=== PATIENT | male | born 1955 | race Caucasian/White ===

== ENCOUNTER 2021-03-16 06:22 | Day surgery (SDC) | payer OTHER, SELFPAY ==
[2021-03-16] MEDS: Tropicam./Phenyleph. (1/2.5%) 5 ML BTL OD ×3 (06:45→06:55)
[2021-03-16 06:52] VITALS: BP 122/78; PULSE 62; RESP 16; TEMP 36.5; O2SAT 97
--- NOTE | 2021-03-16 07:06 | W.ANESPRE ---
General Info Date of Service Date Performed: 03/16/21 Height: 6 ft Weight: 111.9 kg Body Mass Index (BMI): 33.4 Surgical Procedure: Operation Date: 03/16/21 07:40 Proposed Procedures Side Surgeon p Cataract Extraction with IOL Implant Right Wayne Bazan MD Actual Procedures Side Surgeon p Cataract Extraction with IOL Implant Left Wayne Bazan MD Pre-Op Diagnosis Post-Op Diagnosis CATARACT LEFT EYE Meds Allergies and Home Medications Allergies Allergy/AdvReac Type Severity Reaction Status Date / Time No Known Allergies Allergy Unverified 03/16/21 06:36 Home Medication Medication Instructions Recorded apixaban 5 mg PO BID 03/14/21 atorvastatin 40 mg PO HS 03/14/21 diltiazem HCl 180 mg PO DAILY 03/14/21 furosemide 20 mg PO DAILY 03/14/21 gabapentin 300 mg PO BID 03/14/21 levothyroxine 175 mcg PO QAM 03/14/21 metoprolol succinate 25 mg PO DAILY 03/14/21 oxycodone-acetaminophen 1 - 1.5 tab PO BID PRN 03/14/21 psyllium 1 tbsp PO DAILY 03/14/21 sennosides 8.6 mg PO DAILY 03/14/21 trazodone 25 mg PO HS 03/14/21 zolpidem 10 mg PO HS 03/14/21 Current Visit Medications: Current Medications Generic Name Dose Route Start Last Admin Trade Name Freq PRN Reason Stop Dose Admin Acetaminophen 1,000 mg 03/16/21 06:00 Acetaminophen 500 Mg Tab PO Q4H PRN PRN Miscellaneous Medication 0 ml 03/16/21 06:00 Prednisolone 1%, Moxifloxacin 0.5%, Nepafenac 0.1% 5ml Btl OD DIRECTED ANTHONY Miscellaneous Medication 0 ml 03/16/21 06:00 03/16/21 06:55 Tropicam./Phenyleph. (1/2.5%) 5 Ml Btl OD 1 drp DIRECTED ANTHONY Administration Tetracaine HCl 0 ml 03/16/21 06:00 Tetracaine 0.5% 4 Ml Btl OD DIRECTED ANTHONY PFSH Active Problems Active Problems: Problem Status Onset Code Posterior subcapsular age-related cataract of left eye H25.042 Nuclear sclerotic cataract of left eye H25.12 Medical History Medical History Asymmetrical sensorineural hearing loss Atrial fibrillation Benign monoclonal gammopathy BPH (benign prostatic hyperplasia) Chronic back pain Chronic CHF (congestive heart failure) F/U with Dr. Wheat in [facility] beginning of 02/2021 [place] [facility] [place] for CHF and pleural effusion. Pt. states MD was aware he was having cataract surgery Chronic neck pain Constipation, unspecified Essential hypertension History of transient ischemic attack 2019-pt. states he didn't even know he had it until the MD told him he did Hypertriglyceridemia Hypothyroidism Low back pain Obesity Pulmonary embolism 2019 Radiculopathy Secondary pulmonary hypertension Sleep apnea Subjective tinnitus Vitamin B12 deficiency Surgical History Surgical History Hx of cardiac catheterization Hx of prior ablation treatment Tobacco Smoking/Tobacco Use Status: Former Tobacco Use Alcohol Alcohol Intake: current Alcohol intake frequency: a few times a month Alcohol type: beer Substance Use Substance use type: does not use Vital Signs and Lab Results Vital Signs Most Recent Vital Signs in EMR: Most Recent Vital Signs Temp Pulse Resp BP Pulse Ox 36.5 C 62 16 122/78 97 03/16/21 06:52 03/16/21 06:52 03/16/21 06:52 03/16/21 06:52 03/16/21 06:52 Lab Results Blood Type / Crossmatch: No Data to Display Complete Blood Count: No Data to Display Complete Metabolic Panel: No Data to Display Liver Function Panel: No Data to Display Coagulation Panel: No Data to Display Cardiac Panel: No Data to Display Arterial Blood Gas: No Data to Display Venous Blood Gas: No Data to Display Pancreas Panel: No Data to Display Thyroid Panel: No Data to Display Infectious Disease: No Data to Display Blood Cultures: No Data to Display Toxicology Panel: No Data to Display Anesthesia Assessment and Plan Anesthesia History Personal History: No History of Anesthesia Complications Family History: No Family History of Anesthesia Complications Exercise Tolerance Exercise Tolerance: Metabolic Equivalents>4 Pertinent Negatives Pertinent Negatives: No Symptoms of GERD, No Major Cardiovascular Symptoms or Complaints, No Major Pulmonary Symptoms or Complaints (MARCUS does not wear CPAP) and No History of CVA/TIA Cardiac & Pulmonary Exam Cardiac Exam: Normal S1/S2 Heart Sounds Pulmonary Exam: Clear Bilateral Breath Sounds Airway Exam Known Difficult Airway: No Mallampati Class: 3 Mouth Opening: Normal (> 3cm) Thyromental Distance: Greater than 3 cm Neck Range of Motion: Full ROM Neck Circumference: Normal Teeth Condition: Other Airway Comments: Multiple broken misaligned teeth ASA Classification ASA Score: ASA 3 Emergency Case?: No NPO Status NPO Status: NPO Clears >2 hours, Solids >8 hours Anesthesia Plan Resuscitation Status: Full Code Anesthesia Technique: MAC Anesthesia Airway Planned: Natural Airway Monitors Used: Standard Monitors
[2021-03-16 07:09] VITALS: BMI 33.4
[2021-03-16] MEDS: Lidocaine 1% Pres-Free 5 ML VIAL (07:27)
[2021-03-16] MEDS: Balanced Salt Soln.-PLUS 500 ML BAG (07:31)
[2021-03-16] MEDS: Lidocaine 2% Jelly 6 ML SYR (07:32)
[2021-03-16] MEDS: Povidone-Iodine Ophth 30 ML BTL (07:33)
[2021-03-16] MEDS: Duovisc Viscoelastic System EACH 1 EACH (07:34)
[2021-03-16] MEDS: Tetracaine 0.5% 4 ML BTL OD (07:35)
[2021-03-16 07:49] VITALS: BP 128/79; PULSE 59; RESP 16; TEMP 36.4; O2SAT 95
--- NOTE | 2021-03-16 07:53 | W.ANESPOSTOP ---
Postoperative Evaluation Date, Time and Location Date Performed: 03/16/21 Time Performed: 07:53 Patient Location: Day Surgery Unit Vital Signs Most Recent Imported Vital Signs: Most Recent Vital Signs Temp Pulse Resp BP Pulse Ox 36.5 C 62 16 122/78 97 03/16/21 06:52 03/16/21 06:52 03/16/21 06:52 03/16/21 06:52 03/16/21 06:52 Most Recent Manually Entered Vital Signs: Adult Blood Pressure: 128/79 Heart Rate: 59 Respirations: 12 Oxygen Saturation (%): 96 Temperature (C): 36.4 C Pain Score (0-10 Scale): 0 Assessment Mental Status: Awake (Alert & Oriented to Patient Baseline) Airway and Respiratory Function: Patent airway with normal (patient baseline) respiratory exam Cardiovascular Function: Hemodynamically Stable Hydration Status: Adequately Hydrated Nausea & Vomiting: No Nausea or Vomiting Pain: Pt. Denies Any Pain Peripheral Nerve Block: Patient did not receive a nerve block
[2021-03-16 07:54] VITALS: BP 128/79; PULSE 59; RESP 12; TEMPC 36.4; O2SAT 96
--- NOTE | 2021-03-16 07:55 | W.PM.DSUDISC ---
Discharge Plan Disposition Patient Disposition: HOME Condition: Good Discharge Details Attending Provider: Wayne Bazan Primary Care Provider: Shayna Hendrix Home Meds and New Rx's Prescriptions: No Action levothyroxine 175 mcg Tablet 175 mcg PO QAM RF: 0 trazodone 50 mg Tablet 25 mg PO HS RF: 0 diltiazem HCl 180 mg capsule,extended release 24hr 180 mg PO DAILY RF: 0 oxycodone-acetaminophen 5-325 mg Tablet 1 - 1.5 tab PO BID PRNRF: 0 psyllium Powder 1 tbsp PO DAILY RF: 0 gabapentin 300 mg Capsule 300 mg PO BID RF: 0 furosemide 20 mg Tablet 20 mg PO DAILY RF: 0 metoprolol succinate 25 mg Tablet Extended Release 24 Hr 25 mg PO DAILY RF: 0 zolpidem 10 mg Tablet 10 mg PO HS RF: 0 sennosides 8.6 mg Capsule 8.6 mg PO DAILY RF: 0 apixaban 5 mg Tablet 5 mg PO BID RF: 0 atorvastatin 40 mg Tablet 40 mg PO HS RF: 0 Discharge Instructions Stand Alone Forms: Post-op Topical Cataract, Manan Olmos ([facility]U) Discharge Orders Discharge Orders: Discharge Order (Routine); Ordered 03/16/21 Ordered By: Wayne Bazan DS: Diagnosis Discharge Diagnosis (1) Posterior subcapsular age-related cataract of left eye: Status: Resolved (2) Nuclear sclerotic cataract of left eye: Status: Resolved
--- NOTE | 2021-03-16 07:56 | ROE_ITS ---
Date of service: 03/16/21 Time of Service: 07:56 Operative Note Operative Note DATE OF PROCEDURE: 03/16/21 PRE-OP DIAGNOSIS: Nuclear/posterior subcapsular cataract, left eye POST-OP DIAGNOSIS: same PROCEDURE: Cataract extraction using phacoemulsification with intraocular lens implant, left eye SURGEON: Wayne Bazan ANESTHESIA TYPE: Local By Surgeon and MAC Refer to Anesthesia Record PATHOLOGY: none sent COMPLICATIONS: None Patient was transported to: same day Patient's condition: stable Implants: [employer] Tecnis [id number] Indications: Progressive decreased vision due to cataract, left eye, with poor red reflex Procedure Description: CATARACT SURGERY OPERATIVE REPORT PREOPERATIVE DIAGNOSIS: 1. Nuclear/posterior subcapsular cataract, left eye POSTOPERATIVE DIAGNOSIS: Same OPERATION: 1. Cataract extraction using phacoemulsification with posterior chamber intraocular lens implant, left eye. IOL: IOL Collision Estimator/Model: [employer] Omar / TRINH Tecnis [id number] IOL Power: + 17.0 diopters IOL Serial Number: [id number] Optic Diameter: 6.0 mm Haptic/Overall Diameter: 13.0 mm PHACO INFO: Jesse [employer] Dataurion Vision System with OZil and Active Fluidics Cumulative Dispersed Energy (CDE): 17.07 seconds SURGEON: Wayne Bazan MD, TEX ANESTHESIA: Monitored A [facility] (MAC), with local sub-tenon's anesthetic infiltration COMPLICATIONS: None SPECIMENS: None INDICATIONS FOR PROCEDURE: The patient is a 65-year-old gentleman with history of diminished visual acuity in his left eye secondary to the development of significant nuclear and posterior subcapsular cataract. The option of cataract surgery was offered to the patient and he felt he was symptomatic enough that he wished to proceed. PROCEDURE: The correct surgical eye was identified and marked as the left eye and the pupil was dilated in the preoperative area using mydriatics and cycloplegics. The dilated pupil size was 6.5 mm. He elected to proceed without oral sedation.. The patient was brought to the operating room where cardiopulmonary monitoring was instituted and surgical time-out was performed, confirming the correct operative eye and IOL power. Topical anesthesia was administered and ophthalmic povidone-iodine 5% was instilled into the conjunctival fornices. Lidocaine gel was applied to the cornea and the kurt-ocular area was prepped with Betadine 10% solution and drap ed in the usual sterile fashion for intraocular surgery, including an aperture drape. A Tegaderm transparent film dressing was cut in half and used to cover the lashes and lid margins. Care was taken to sequester the lashes and lid margins under the Tegaderm dressing. A lid speculum was placed between the lids of the operative eye and the Florence-Moisés operating microscope was maneuvered into position. Suzette scissors were then used to make a conjunctival buttonhole approximately 6mm posterior to the limbus in the inferonasal quadrant. Blunt dissection was carried out to expose bare sclera, and a blunt-tipped sub-tenon?s anesthesia cannula was introduced and passed posteriorly along the globe where non- preserved plain lidocaine was injected into posterior sub-Tenon?s space. A sideport knife was used to make a paracentesis port superiorly/superiortemporally. Intraocular phenylephrine/lidocaine was injected int the anterior chamber.. Air was then injected into the anterior chamber, followed by Vision Blue, which was painted over the anterior capsule and then irrigated out using BSS. The anterior chamber was filled with viscoelastic. A 2.4mm keratome knife was used to create a half-thickness groove at the limbus and then to construct a three-plane near-clear corneal tunnel extending 2.0mm into clear cornea at the 3:00 position. A flap was raised on the anterior capsule and capsulorhexis forceps were used to complete a continuous curvilinear capsulorhexis of 5.0 mm. Balanced salt solution was then used to perform cortical cleaving hydrodissection and nuclear hydrodelineation until the lens could be freely rotated within the capsular bag. The lens nucleus was then disassembled and removed within the capsular bag and iris plane using phacoemulsification. Residual cortical material was removed using the 45-degree angled silicone I/A tip with 0.3mm port. The posterior capsule was carefully polished to remove as much residual lens epithelial cells as safely possible. The capsular bag was then inflated and the anterior chamber deepened with viscoelastic. The lens implant described above was inserted into the capsular bag using the TRINH Parkin Injector. A Kuglen hook was used to dial the IOL into position. Residual viscoelastic was then removed first from posterior to the IOL, then from the anterior chamber using the I/A handpiece. The lens implant was noted to center nicely within the capsular bag. The incisions were stromally hydrated, and the anterior chamber was reformed using BSS. Then 0.5cc of moxifloxacin 1.0mg/ml were injected into the capsular bag and anterior chamber. The incisions were checked with a Weck spear and found to be secure. Several drops of ophthalmic povidone-iodine 5% were then applied to the eye followed by two drops of Imprimis combination prednisolone/moxifloxacin/nepafenac solution. The drapes were removed and a clear plastic protective eye shield was placed over the eye. The patient was then returned to Same Day Surgery in stable condition.
== END 2021-03-16 08:12 | disposition home or self-care (01) ==
PROVIDERS: PCP Nurse Practitioner Primary Care; Visit Provider Ophthalmology
PROC: (CPT 66984; principal; 2021-03-16 07:30)
DX: H25.042 Posterior subcapsular polar age-related cataract, left eye (principal); I48.91 Unspecified atrial fibrillation; I50.9 Heart failure, unspecified; I11.0 Hypertensive heart disease with heart failure
CPT/HCPCS: 66984; V2632

== ENCOUNTER 2021-03-28 02:28 | Outpatient (CLI) | payer OTHER, SELFPAY ==
[2021-03-28 14:24] LABS: Source Nasal/Nares
[2021-03-28 19:35] LABS: COVID-19 PCR Negative (Negative)
== END 2021-03-28 02:29 | disposition home or self-care (01) ==
LOC: LBO 02:28
PROVIDERS: PCP Nurse Practitioner Primary Care; Visit Provider Ophthalmology
DX: Z20.822 Contact with and (suspected) exposure to COVID-19 (principal); Z01.818 Encounter for other preprocedural examination
CPT/HCPCS: 87635

== ENCOUNTER 2021-03-30 06:08 | Day surgery (SDC) | payer OTHER, SELFPAY ==
[2021-03-30] MEDS: Tropicam./Phenyleph. (1/2.5%) 5 ML BTL OD ×3 (06:37→06:47)
[2021-03-30 06:38] VITALS: BP 118/73; PULSE 59; RESP 16; TEMP 36.4; O2SAT 96
--- NOTE | 2021-03-30 07:13 | W.ANESPRE ---
General Info Date of Service Date Performed: 03/30/21 Height: 6 ft Weight: 112.2 kg Body Mass Index (BMI): 33.5 Surgical Procedure: Operation Date: 03/30/21 07:40 Proposed Procedures Side Surgeon p Cataract Extraction with IOL Implant Right Wayne Bazan MD Meds Allergies and Home Medications Allergies Allergy/AdvReac Type Severity Reaction Status Date / Time No Known Allergies Allergy Unverified 03/30/21 06:33 Home Medication Medication Instructions Recorded apixaban 5 mg PO BID 03/14/21 atorvastatin 40 mg PO HS 03/14/21 diltiazem HCl 180 mg PO DAILY 03/14/21 furosemide 20 mg PO DAILY 03/14/21 gabapentin 300 mg PO BID 03/14/21 levothyroxine 175 mcg PO QAM 03/14/21 metoprolol succinate 25 mg PO DAILY 03/14/21 oxycodone-acetaminophen 1 - 1.5 tab PO BID PRN 03/14/21 psyllium 1 tbsp PO DAILY 03/14/21 sennosides 8.6 mg PO DAILY 03/14/21 trazodone 25 mg PO HS 03/14/21 zolpidem 10 mg PO HS 03/14/21 Current Visit Medications: Current Medications Generic Name Dose Route Start Last Admin Trade Name Freq PRN Reason Stop Dose Admin Acetaminophen 1,000 mg 03/30/21 06:00 Acetaminophen 500 Mg Tab PO Q4H PRN PRN Miscellaneous Medication 0 ml 03/30/21 06:00 Prednisolone 1%, Moxifloxacin 0.5%, Nepafenac 0.1% 5ml Btl OD DIRECTED [facility] Miscellaneous Medication 0 ml 03/30/21 06:00 03/30/21 06:47 Tropicam./Phenyleph. (1/2.5%) 5 Ml Btl OD 1 drp DIRECTED ANTHONY Administration Tetracaine HCl 0 ml 03/30/21 06:00 Tetracaine 0.5% 4 Ml Btl OD DIRECTED [facility] PFSH Active Problems Active Problems: Problem Status Onset Code Nuclear sclerotic cataract of left eye H25.12 Posterior subcapsular age-related cataract of left eye H25.042 Medical History Medical History Asymmetrical sensorineural hearing loss Atrial fibrillation Benign monoclonal gammopathy BPH (benign prostatic hyperplasia) Chronic back pain Chronic CHF (congestive heart failure) F/U with Dr. Wheat in [facility] beginning of 02/2021 as recommended by [facility] [place] inpatient hospitalization for CHF and pleural effusion. Pt. states MD was aware he was having cataract surgery Chronic neck pain Constipation, unspecified Essential hypertension History of transient ischemic attack 2019-pt. states he didn't even know he had it until the MD told him he did Hypertriglyceridemia Hypothyroidism Low back pain Obesity Pulmonary embolism 2019 Radiculopathy Secondary pulmonary hypertension Sleep apnea Subjective tinnitus Vitamin B12 deficiency Surgical History Surgical History (Updated 03/30/21 @ 06:32 by Shannan [place]) Hx of cardiac catheterization Hx of cataract surgery Hx of prior ablation treatment Tobacco Smoking/Tobacco Use Status: Former Tobacco Use Alcohol Alcohol Intake: current Alcohol intake frequency: a few times a month Alcohol type: beer Substance Use Substance use type: does not use Vital Signs and Lab Results Vital Signs Most Recent Vital Signs in EMR: Most Recent Vital Signs Temp Pulse Resp BP Pulse Ox 36.4 C L 59 L 16 118/73 96 03/30/21 06:38 03/30/21 06:38 03/30/21 06:38 03/30/21 06:38 03/30/21 06:38 Lab Results Blood Type / Crossmatch: No Data to Display Complete Blood Count: No Data to Display Complete Metabolic Panel: No Data to Display Liver Function Panel: No Data to Display Coagulation Panel: No Data to Display Cardiac Panel: No Data to Display Arterial Blood Gas: No Data to Display Venous Blood Gas: No Data to Display Pancreas Panel: No Data to Display Thyroid Panel: No Data to Display Infectious Disease: Coronavirus (COVID-19)(PCR) Negative (Negative) 03/28/21 10:37 03/28/21 Coronavirus 2019 Source Nasal/Nares 03/28/21 10:37 03/28/21 Blood Cultures: No Data to Display Toxicology Panel: No Data to Display Anesthesia Assessment and Plan Anesthesia History Personal History: No History of Anesthesia Complications Family History: No Family History of Anesthesia Complications Exercise Tolerance Exercise Tolerance: Metabolic Equivalents>4 Pertinent Negatives Pertinent Negatives: No Symptoms of GERD, No Major Cardiovascular Symptoms or Complaints, No Major Pulmonary Symptoms or Complaints and No History of CVA/TIA Cardiac & Pulmonary Exam Cardiac Exam: Normal S1/S2 Heart Sounds Pulmonary Exam: Clear Bilateral Breath Sounds Airway Exam Known Difficult Airway: No Mallampati Class: 3 Mouth Opening: Normal (> 3cm) Thyromental Distance: Greater than 3 cm Neck Range of Motion: Full ROM Neck Circumference: Normal Teeth Condition: Other ASA Classification ASA Score: ASA 2 Emergency Case?: No NPO Status NPO Status: NPO Clears >2 hours, Solids >8 hours Anesthesia Plan Resuscitation Status: Full Code Anesthesia Technique: MAC Anesthesia Airway Planned: Natural Airway Monitors Used: Standard Monitors
[2021-03-30 07:14] VITALS: BMI 33.5
[2021-03-30] MEDS: Lidocaine 2% Jelly 6 ML SYR (07:25)
[2021-03-30] MEDS: Povidone-Iodine Ophth 30 ML BTL (07:25)
[2021-03-30] MEDS: Duovisc Viscoelastic System EACH 1 EACH (07:28)
[2021-03-30] MEDS: Balanced Salt Soln.-PLUS 500 ML BAG (07:28)
[2021-03-30] MEDS: Tetracaine 0.5% 4 ML BTL OD (07:28)
[2021-03-30] MEDS: Lidocaine 1% Pres-Free 5 ML VIAL (07:28)
[2021-03-30 07:50] VITALS: BP 117/72; PULSE 57; RESP 18; TEMP 36.6; O2SAT 96
[2021-03-30 07:52] VITALS: BP 117/72; PULSE 59; RESP 12; TEMPC 36.6; O2SAT 96
--- NOTE | 2021-03-30 07:52 | W.PM.DSUDISC ---
Discharge Plan Disposition Patient Disposition: HOME Condition: Good Discharge Details Attending Provider: Wayne Bazan Primary Care Provider: Shayna Hendrix Home Meds and New Rx's Prescriptions: No Action levothyroxine 175 mcg Tablet 175 mcg PO QAM RF: 0 trazodone 50 mg Tablet 25 mg PO HS RF: 0 diltiazem HCl 180 mg capsule,extended release 24hr 180 mg PO DAILY RF: 0 oxycodone-acetaminophen 5-325 mg Tablet 1 - 1.5 tab PO BID PRNRF: 0 psyllium Powder 1 tbsp PO DAILY RF: 0 gabapentin 300 mg Capsule 300 mg PO BID RF: 0 furosemide 20 mg Tablet 20 mg PO DAILY RF: 0 metoprolol succinate 25 mg Tablet Extended Release 24 Hr 25 mg PO DAILY RF: 0 zolpidem 10 mg Tablet 10 mg PO HS RF: 0 sennosides 8.6 mg Capsule 8.6 mg PO DAILY RF: 0 apixaban 5 mg Tablet 5 mg PO BID RF: 0 atorvastatin 40 mg Tablet 40 mg PO HS RF: 0 Discharge Instructions Stand Alone Forms: Post-op Topical Cataract, Manan Olmos ([facility]) Discharge Orders Discharge Orders: Discharge Order (Routine); Ordered 03/30/21 Ordered By: Wayne Bazan DS: Diagnosis Discharge Diagnosis (1) Nuclear sclerotic cataract of right eye: Status: Resolved (2) Posterior subcapsular age-related cataract, right eye: Status: Chronic
--- NOTE | 2021-03-30 07:52 | W.ANESPOSTOP ---
Postoperative Evaluation Date, Time and Location Date Performed: 03/30/21 Time Performed: 07:52 Patient Location: Day Surgery Unit Vital Signs Most Recent Imported Vital Signs: Most Recent Vital Signs Temp Pulse Resp BP Pulse Ox 36.4 C L 59 L 16 118/73 96 03/30/21 06:38 03/30/21 06:38 03/30/21 06:38 03/30/21 06:38 03/30/21 06:38 Most Recent Manually Entered Vital Signs: Adult Blood Pressure: 117/72 Heart Rate: 59 Respirations: 12 Oxygen Saturation (%): 96 Temperature (C): 36.6 C Pain Score (0-10 Scale): 0 Pain Score Most Recent Pain Score: Most Recent Pain Score Pain Level 0 03/30/21 06:38 Assessment Mental Status: Awake (Alert & Oriented to Patient Baseline) Airway and Respiratory Function: Patent airway with normal (patient baseline) respiratory exam Cardiovascular Function: Hemodynamically Stable Hydration Status: Adequately Hydrated Nausea & Vomiting: No Nausea or Vomiting Pain: Pt. Denies Any Pain Peripheral Nerve Block: Patient did not receive a nerve block
--- NOTE | 2021-03-30 07:53 | ROE_ITS ---
Date of service: 03/30/21 Time of Service: 07:53 Operative Note Operative Note DATE OF PROCEDURE: 03/30/21 PRE-OP DIAGNOSIS: Nuclear/posterior subcapsular cataract, right eye POST-OP DIAGNOSIS: same PROCEDURE: Cataract extraction using phacoemulsification with intraocular lens implant, right eye SURGEON: Wayne Bazan ANESTHESIA TYPE: Local By Surgeon and MAC Refer to Anesthesia Record ESTIMATED BLOOD LOSS: 0 PATHOLOGY: none sent COMPLICATIONS: None Patient was transported to: same day Patient's condition: stable Implants: [employer] Omar/TRINH Tecnis [id number] Indications: Progressive visual loss due to cataract, right eye Procedure Description: CATARACT SURGERY OPERATIVE REPORT PREOPERATIVE DIAGNOSIS: 1. Nuclear/posterior subcapsular cataract, right eye POSTOPERATIVE DIAGNOSIS: Same OPERATION: 1. Cataract extraction using phacoemulsification with posterior chamber intraocular lens implant, right eye. 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 He has already undergone cataract surgery in the left eye and is doing well postoperatively. He now presents for cataract surgery in the right eye. PROCEDURE: The correct surgical eye was identified and marked as the right eye and the pupil was dilated in the preoperative area using mydriatics and cycloplegics. The dilated pupil size was 7.0 mm. He elected to proceed without oral sedation.. The patient was brought to the operating room where cardiopulmonary monitoring was instituted and surgical time-out was performed, confirming the correct operative eye and IOL power. Topical anesthesia was administered and ophthalmic povidone-iodine 5% was instilled into the conjunctival fornices. Lidocaine gel was applied to the cornea and the kurt-ocular area was prepped with Betadine 10% solution and draped in the usual sterile fashion for intraocular surgery, including an aperture drape. A Tegaderm transparent film dressing was cut in half and used to cover the lashes and lid margins. Care was taken to sequester the lashes and lid margins under the Tegaderm dressing. A lid speculum was placed between the lids of the operative eye and the Florence-Moisés operating microscope was maneuvered into position. Suzette scissors were then used to make a conjunctival buttonhole approximately 6mm posterior to the limbus in the inferonasal quadrant. Blunt dissection was carried out to expose bare sclera, and a blunt-tipped sub-tenon?s anesthesia cannula was introduced and passed posteriorly along the globe where non- preserved plain lidocaine was injected into posterior sub-Tenon?s space. A sideport knife was used to make a paracentesis port inferotemporally. Intraocular phenylephrine/lidocaine was injected into the anterior chamber. The anterior chamber was filled with viscoelastic. A 2.4mm keratome knife was used to create a half-thickness groove at the limbus and then to construct a three- plane near-clear corneal tunnel extending 2.0mm into clear cornea superiortemporally. A flap was raised on the anterior capsule and capsulorhexis forceps were used to complete a continuous curvilinear capsulorhexis of 5.0 mm. Balanced salt solution was then used to perform cortical cleaving hydrodissection and nuclear hydrodelineation until the lens could be freely rotated within the capsular bag. The lens nucleus was then disassembled and removed within the capsular bag and iris plane using phacoemulsification. Residual cortical material was removed using the I/A handpiece. The posterior capsule was carefully polished to remove as much residual lens epithelial cells as safely possible. The capsular bag was then inflated and the anterior chamber deepened with viscoelastic. The lens implant described above was inserted into the capsular bag using the TRINH [employer] [place] Injector. A Kuglen hook was used to dial the IOL into position. Residual viscoelastic was then removed first from posterior to the IOL, then from the anterior chamber using the I/A handpiece. The lens implant was noted to center nicely within the capsular bag. The incisions were stromally hydrated, and the anterior chamber was reformed using BSS. Then 0.5cc of moxifloxacin 1.0mg/ml were injected into the capsular bag and anterior chamber. The incisions were checked with a Weck spear and found to be secure. Several drops of ophthalmic povidone-iodine 5% were then applied to the eye followed by two drops of Imprimis combination prednisolone/moxifloxacin/nepafenac solution. The drapes were removed and a clear plastic protective eye shield was placed over the eye. The patient was then returned to [facility] in stable condition.
== END 2021-03-30 08:15 | disposition home or self-care (01) ==
PROVIDERS: PCP Nurse Practitioner Primary Care; Visit Provider Ophthalmology
PROC: (CPT 66984; principal; 2021-03-30 07:30)
DX: H25.041 Posterior subcapsular polar age-related cataract, right eye (principal); I11.0 Hypertensive heart disease with heart failure; I50.9 Heart failure, unspecified; I48.91 Unspecified atrial fibrillation
CPT/HCPCS: 66984; V2632